=== PATIENT | female | born 1950 | race Caucasian/White ===

== ENCOUNTER 2018-03-10 15:00 | Emergency (ER) | payer MEDICARE ==
[~2018-03-10] VITALS: Ht 167.6 cm; Wt 86.2 kg
[2018-03-10] MEDS ORDERED: CEPH500 PO (17:08)
== END 2018-03-10 17:29 | disposition home or self-care (01) ==
LOC: ER 15:00
DX: S61.213A Laceration without foreign body of left middle finger without damage to nail, initial encounter (principal); S61.412A Laceration without foreign body of left hand, initial encounter; Z23 Encounter for immunization; W26.8XXA Contact with other sharp object(s), not elsewhere classified, initial encounter
CPT/HCPCS: 12002; 72040; 73130; 90471; 90714; 99283